=== PATIENT | female | born 1965 | race Caucasian/White ===

== ENCOUNTER → 2021-04-08 13:59 | Outpatient (CLI) | payer BC, SELFPAY ==
--- NOTE | ~2021-04-08 | MM_ITS ---
EXAMINATION: MM screening bowen BI w mitch HISTORY: Screening mammogram TECHNIQUE: Craniocaudal and mediolateral oblique 3-D tomosynthesis images were obtained and synthetic 2-D images were generated. CAD analysis was submitted and interpreted. COMPARISON: 2017, 05/22/2017, 10/13/2014 bilateral digital screening mammogram examinations BREAST PARENCHYMAL COMPOSITION: The breasts are almost entirely fatty. FINDINGS: There is no evidence of suspicious mass, calcification, or architectural distortion to sugg est malignancy in either breast. There has been no suspicious interval change. IMPRESSION: 1. No mammographic evidence of malignancy. 2. Recommend routine screening mammography in one year. BI-RADS Category 1: Negative Reviewed, dictated and finalized at location A.
== END ==
PROVIDERS: Visit Provider Nurse Practitioner
DX: Z12.31 Encounter for screening mammogram for malignant neoplasm of breast (principal)
CPT/HCPCS: 77063; 77067

== ENCOUNTER → 2021-11-21 14:33 | Outpatient (REF) | payer BC, SELFPAY | LOC: ANHLAB 14:33 | PROVIDERS: Visit Provider Nurse Practitioner | DX: D22.61 Melanocytic nevi of right upper limb, including shoulder (principal); D22.62 Melanocytic nevi of left upper limb, including shoulder | CPT/HCPCS: 88305 ==

== ENCOUNTER 2022-01-27 01:21 | Day surgery (SDC) | payer BC, SELFPAY ==
[2022-01-16 13:16] VITALS: BMI 30.4
[2022-01-27 07:03] VITALS: BP 143/98; PULSE 75; RESP 20; TEMP 36.4; O2SAT 99; BMI 30.5
--- NOTE | 2022-01-27 07:14 | WPDANESEPPF ---
Anes - Initial Pre Proc Eval Procedure: Operation Date: 01/27/22 08:00 Proposed Procedures p Colonoscopy - Francisco Reyes MD Date/Time: 01/27/22 07:14 Surgeon: Francisco Reyes MD Pre Op Diagnosis: positive cologuard Patient Data Age: 56 Gender: F Height: 1.73 m Weight: 91.2 kg Last Vital Signs Temp 36.4 C 01/27/22 07:03 Pulse 75 01/27/22 07:03 Resp 20 01/27/22 07:03 BP 143/98 H 01/27/22 07:03 Pulse Ox 99 01/27/22 07:03 Allergies Allergy/AdvReac Type Severity Reaction Status Date / Time No Known Allergies Allergy Verified 11/21/21 13:40 Home Medications Medication Instructions Recorded Confirmed Type bupropion HCl 150 mg 24 hr tablet, 300 mg PO DAILY tablet 11/21/21 01/16/22 History extended release escitalopram oxalate 20 mg tablet 20 mg PO DAILY tablet 11/21/21 01/16/22 History rosuvastatin 5 mg PO DAILY 01/16/22 01/16/22 History Patient hx anesthesia problems: none Family hx anesthesia problems: none Results Review: All pre-operative results and documents have been reviewed as part of the pre-operative evaluation. [facility], LAT[facility] Past Medical History Medical History (Updated 01/27/22 @ 07:17 by Joao Oconnor MD) Anxiety BMI 30.0-30.9,adult Depression Hyperlipidemia Social History Social History (Updated 11/21/21 @ 13:41 by Snow Lovell RN) Years smoked: 11 Smoking status: Former smoker Tobacco type: cigarettes Alcohol intake: current Drinks per week: 1 Substance use: never Substance use type: does not use Living arrangements: with family Spiritual care concerns: No Anes - Eval Final PreProcedure Day of Procedure 01/27/22 07:14 Patient weight: obese Heart: regular rate and rhythm Lungs: clear to auscultation and normal air movement Airway: Mallampati scale class II Neurological: alert and oriented Last oral intake: >/= 8 hours ASA classification: III Emergent: no Anesthetic plan: proceed Anesthesia type and monitoring: general GIVS Results Review: All pre-operative results and documents have been reviewed as part of the pre-operative evaluation. Informed Consent: The patient's anesthetic plan and its attendant risks and benefits were discussed with the patient/family/POA. Questions were solicited and answers provided to the satisfaction of the patient/family/POA.
[2022-01-27] MEDS: LACTATED RINGERS 1,000 ML 150 ML IV CONT (07:15)
--- NOTE | 2022-01-27 07:47 | PM.HPGS ---
History of Present Illness History of Present Illness Consent: Risks, benefits, and alternatives have been discussed and questions answered. Patient agrees to proceed with procedure. Chief complaint: positive cologuard Narrative: Radha Cole is a 56 year old female Referred for colon cancer screening because of a positive Cologuard test. Review of Systems Review of Systems: All systems reviewed & are unremarkable except as noted in HPI and below PMFSH Past Medical History Medical History Anxiety BMI 30.0-30.9,adult Depression Hyperlipidemia Social History Social History Years smoked: 11 Smoking status: Former smoker Tobacco type: cigarettes Alcohol intake: current Drinks per week: 1 Substance use: never Substance use type: does not use Living arrangements: with family Spiritual care concerns: No Meds Home Medications and Allergies Home Medications Medication Instructions Recorded Confirmed Type bupropion HCl 150 mg 24 hr tablet, 300 mg PO DAILY tablet 11/21/21 01/16/22 History extended release escitalopram oxalate 20 mg tablet 20 mg PO DAILY tablet 11/21/21 01/16/22 History rosuvastatin 5 mg PO DAILY 01/16/22 01/16/22 History Allergies Allergy/AdvReac Type Severity Reaction Status Date / Time No Known Allergies Allergy Verified 11/21/21 13:40 Vital Signs Vital Signs - 24 hr 01/27/22 07:03 Temperature 36.4 C Pulse Rate 75 Respiratory Rate 20 Blood Pressure 143/98 H Pulse Oximetry 99 Exam Const: General: alert Orientation/consciousness: patient oriented x3 Resp: Auscultation: clear to auscultation bilaterally Cardio: Rhythm: regular rhythm GI: GI Palp: Yes Soft to palpation and No Tenderness to palpation present (GI) Neuro: General: patient oriented x3 Assessment and Plan Assessment and plan (1) Colon cancer screening: Code(s): Z12.11 - Encounter for screening for malignant neoplasm of colon Status: Acute Assessment and Plan: Colonoscopy with possible biopsy or polypectomy or cautery or injection of substances.
[2022-01-27 08:20] VITALS: BP 96/54; PULSE 77; RESP 25; O2SAT 99
[2022-01-27 08:30] VITALS: BP 118/72; PULSE 67; RESP 18; O2SAT 100
[2022-01-27 08:40] VITALS: BP 138/92; PULSE 65; RESP 17; O2SAT 100
== END 2022-01-27 08:45 | disposition home or self-care (01) ==
PROVIDERS: PCP Pediatrics; Referring Provider Obstetrics & Gynecology Gynecology; Visit Provider Internal Medicine Gastroenterology
PROC: 0DJD8ZZ Inspection of Lower Intestinal Tract, Via Natural or Artificial Opening Endoscopic (ICD-10-PCS; CPT 45378; principal; 2022-01-27 08:00)
DX: Z12.11 Encounter for screening for malignant neoplasm of colon (principal); D12.5 Benign neoplasm of sigmoid colon; E78.5 Hyperlipidemia, unspecified; F41.8 Other specified anxiety disorders; E66.9 Obesity, unspecified; Z68.30 Body mass index [BMI] 30.0-30.9, adult; Z87.891 Personal history of nicotine dependence
CPT/HCPCS: 45385; 88305; J2704; J7120

== ENCOUNTER → 2022-09-28 13:37 | Outpatient (CLI) | payer BC, SELFPAY ==
--- NOTE | ~2022-09-28 | MM_ITS ---
EXAMINATION: MM screening bowen BI w mitch HISTORY: Screening mammogram TECHNIQUE: Craniocaudal and mediolateral oblique 3-D tomosynthesis images were obtained and synthetic 2-D images were generated. CAD analysis was submitted and interpreted. COMPARISON: 04/08/2021, 09/10/2018, 05/22/2017 bilateral screening mammogram examinations BREAST PARENCHYMAL COMPOSITION: The breasts are almost entirely fatty. FINDINGS: There is no evidence of suspicious mass, calcification, or architectural distortion to sugg est malignancy in either breast. There has been no suspicious interval change. IMPRESSION: 1. No mammographic evidence of malignancy. 2. Recommend routine screening mammography in one year. BI-RADS Category 1: Negative Reviewed, dictated and finalized at location A. [employer]
== END ==
PROVIDERS: PCP Pediatrics; Visit Provider Nurse Practitioner
DX: Z12.31 Encounter for screening mammogram for malignant neoplasm of breast (principal)
CPT/HCPCS: 77063; 77067